=== PATIENT | female | born 1975 | race Caucasian/White ===

== ENCOUNTER 2023-10-07 10:47 | Outpatient (RCR) | payer SELFPAY | END 2023-10-19 23:59 | disposition home or self-care (01) | LOC: SOT 10:47 | PROVIDERS: PCP Family Medicine; Visit Provider Orthopaedic Surgery | DX: Z47.89 Encounter for other orthopedic aftercare (principal) | CPT/HCPCS: 97110; 97165; 97530 ==

== ENCOUNTER 2023-10-20 06:00 | Outpatient (RCR) | payer SELFPAY | END 2023-11-19 23:59 | disposition home or self-care (01) | LOC: SOT 06:00 | PROVIDERS: PCP Family Medicine; Visit Provider Orthopaedic Surgery | DX: Z47.89 Encounter for other orthopedic aftercare (principal) | CPT/HCPCS: 97022; 97110; 97140 ==